=== PATIENT | male | born 1955 | race Caucasian/White ===

== ENCOUNTER 2021-12-20 10:56 | Emergency (ER) | payer OTHER ==
[~2021-12-20] VITALS: Ht 175.3 cm; Wt 90.9 kg
[2021-12-20 12:42] LABS: BASOPHIL 0.8 % (0-2); EOSINOPHIL 1.1 % (0-7); HCT 40.9 % (42.0-52.0); HGB 13.8 g/dl (13.2-18.0); LYMPHOCYTE 33.6 % (15-48); MCH 34.5 pg (25.0-31.0); MCHC 33.7 g/dL (32.0-36.0); MCV 102.3 fL (78.0-100.0); MONOCYTE 9.3 % (0-12); MPV 10.3 fL (6.0-9.5); NRBC 0; PLT 311 K/uL (150-400); RDW 11.9 % (11.5-14.0); WBC 8.8 K/uL (4.0-10.5)
[2021-12-20 13:02] LABS: ALBUMIN 3.8 g/dL (3.4-5.0); BILIRUBIN - TOTAL 0.5 mg/dL (0.2-1.0); BUN/CREAT RATIO (CALC) 14.7 RATIO; CREATININE 0.95 mg/dL (0.67-1.17); GLOBULIN (CALCULATION) 4.2 g/dL; POTASSIUM 3.7 mmol/L (3.5-5.1)
[2021-12-20 13:56] LABS: BILIRUBIN NEGATIVE (NEGATIVE); BLOOD NEGATIVE Ery/uL (NEGATIVE); CLARITY CLEAR (CLEAR); COLOR YELLOW (YELLOW); GLUCOSE (U) NORMAL (NORMAL); LEUKOCYTES NEGATIVE Leu/uL (NEGATIVE); NITRITE NEGATIVE (NEGATIVE); PROTEIN NEGATIVE (NEGATIVE); UROBILINOGEN 0.2 mg/dL (0.2-1.0)
== END 2021-12-20 15:21 | disposition home or self-care (01) ==
LOC: FER 10:56
PROVIDERS: Nurse Practitioner Family
DX: K80.80 Other cholelithiasis without obstruction (principal); I10 Essential (primary) hypertension; F17.210 Nicotine dependence, cigarettes, uncomplicated
CPT/HCPCS: 36415; 80053; 81003; 85025; J7030; Q9967